=== PATIENT | female | born 1995 | race African-American/Black ===

== ENCOUNTER 2020-09-28 14:49 | Emergency (ER) | payer MEDICAID ==
[~2020-09-28] VITALS: Ht 157.5 cm; Wt 80.0 kg
[2020-09-28 16:26] LABS: BASOPHILS % 0.6 % (0.0-2.0); EOSINOPHILS % 0.8 % (0.0-5.0); HEMOGLOBIN. 10.8 g/dL (12.0-16.0); LYMPHOCYTES % 23.7 % (20.0-50.0); MEAN CORPUSCULAR HEMOGLOBIN 24.7 pg (28.0-32.0); MEAN CORPUSCULAR VOLUME 72.9 fL (81.0-99.0); MEAN PLATELET VOLUME 9.7 fl (7.4-10.4); MONOCYTES % 10.9 % (2.0-8.0); PLATELET 208 x1000/uL (130-400); RED BLOOD CELL COUNT 4.39 mill/uL (4.2-5.4); RED CELL DISTRIBUTION WIDTH 15.2 % (11.6-14.6)
[2020-09-28 16:32] LABS: CHLORIDE 105 mEq/L (98-107)
[2020-09-28 17:01] LABS: B-HCG QUANTITATIVE 26479 mIU/mL (<3)
[2020-09-28 19:17] LABS: CLARITY URINE CLOUDY (CLEAR); COLOR URINE YELLOW (YELLOW); KETONES URINE 1+ (NEGATIVE); LEUKOCYTE ESTERASE URINE TRACE (NEGATIVE); NITRITE URINE NEGATIVE (NEGATIVE); OCCULT BLOOD URINE NEGATIVE (NEGATIVE); PH URINE 7.5 (4.5-8.0); PROTEIN URINE NEGATIVE (NEGATIVE); SPECIFIC GRAVITY URINE 1.015 (1.005-1.030)
[2020-09-28 19:30] VITALS: BP 105/55
[2020-09-28] MEDS ORDERED: NITR-87 MT (20:14)
== END 2020-09-28 20:57 | disposition home or self-care (01) ==
LOC: ER 14:49
DX: O26.892 Other specified pregnancy related conditions, second trimester (principal); O23.12 Infections of bladder in pregnancy, second trimester; D57.1 Sickle-cell disease without crisis; R10.9 Unspecified abdominal pain; Z3A.17 17 weeks gestation of pregnancy
CPT/HCPCS: 36415; 76805; 80053; 81003; 84702; 85025; 86850; 86900; 99285